=== PATIENT | female | born 1990 | race African-American/Black ===

== ENCOUNTER 2018-02-17 04:30 | Inpatient (IN) | payer MEDICAID ==
[~2018-02-17] VITALS: Ht 170.2 cm; Wt 72.6 kg
[2018-02-17] MEDS: BUTORPHANOL TARTRATE 2 MG/ML VIAL IV PRN ×2 (05:25→07:15)
[2018-02-17] MEDS ORDERED: PNV1TABL76 MT (05:30)
[2018-02-17] MEDS ORDERED: CARBOPROST TROMETHAMINE 250 MCG/ML AMPUL IM PRN (05:45)
[2018-02-17] MEDS ORDERED: LIDOCAINE HCL/PF 1% 10 MG/ML 5ML VIAL IJ SCH (05:45)
[2018-02-17] MEDS ORDERED: NALOXONE HCL 0.4 MG/ML 1ML VIAL IM PRN (05:45)
[2018-02-17] MEDS ORDERED: METHYLERGONOVINE MALEATE 0.2 MG/ML IM PRN ×2 (05:45→09:15)
[2018-02-17] MEDS: TERBUTALINE SULFATE 1MG/ML VIAL SUBCUT PRN ×2 (06:01→06:22)
[2018-02-17] MEDS ORDERED: LACTATED RINGERS 1,000 ML IV SCH (06:30)
[2018-02-17] MEDS ORDERED: PENICILLIN G POTASSIUM 5 MMU in DEXT 5% WATER 100 ML IV SCH (06:30)
[2018-02-17 06:40] LABS: BASOPHILS % 0.5 % (0.0-2.0); EOSINOPHILS % 0.1 % (0.0-5.0); HEMATOCRIT. 31.3 % (36.0-48.0); HEMOGLOBIN. 10.3 g/dL (12.0-16.0); LYMPHOCYTES % 20.9 % (20.0-50.0); MEAN CORPUSCULAR HEMOGLOBIN 26.5 pg (28.0-32.0); MEAN CORPUSCULAR VOLUME 80.5 fL (81.0-99.0); MEAN PLATELET VOLUME 9.9 fl (7.4-10.4); MONOCYTES % 5.8 % (2.0-8.0); NEUTROPHILS % 72.7 % (40.0-76.0); PLATELET 143 x1000/uL (130-400); RED BLOOD CELL COUNT 3.88 mill/uL (4.2-5.4); RED CELL DISTRIBUTION WIDTH 15.6 % (11.6-14.6)
[2018-02-17 06:48] LABS: INR 0.9; PARTIAL THROMBOPLASTIN TIME 27.7 sec (23.4-31.0); PROTHROMBIN TIME 9.4 sec (9.4-11.6)
[2018-02-17] MEDS: DEXT 5%/LR + PITOCIN 20UNITS/L 1,000 ML IV SCH ×2 (08:15→08:16)
[2018-02-17 09:00] VITALS: BP 145/85
[2018-02-17] MEDS ORDERED: DEXT 5%/LR + PITOCIN 20UNITS/L 1,000 ML IV SCH (09:01)
[2018-02-17] MEDS ORDERED: LANOLIN OINT 0.25 GM TUBE TOP PRN (09:15)
[2018-02-17] MEDS ORDERED: IBUPROFEN 400MG TABLET PO PRN (09:15)
[2018-02-17] MEDS ORDERED: RHO(D) IMMUNE GLOBULIN 300 MCG/SYR IM PRN (09:15)
[2018-02-17 09:30] VITALS: BP 149/85
[2018-02-17 09:36] LABS: CHLORIDE 109 mEq/L (98-107)
[2018-02-17] MEDS: IBUPROFEN 800MG TABLET PO PRN ×2 (09:49→17:14)
[2018-02-17] MEDS ORDERED: PENICILLIN G POTASSIUM 2.5 MMU in DEXTROSE 5% WATER 50 ML IV SCH (11:00)
[2018-02-17 11:42] LABS: KETONES URINE 1+ (NEGATIVE); LEUKOCYTE ESTERASE URINE NEGATIVE (NEGATIVE); NITRITE URINE NEGATIVE (NEGATIVE); OCCULT BLOOD URINE 3+ (NEGATIVE); PROTEIN URINE 3+ (NEGATIVE); SPECIFIC GRAVITY URINE 1.014 (1.005-1.030); UROBILINOGEN URINE 0.2 E.U./dL (0.2-1.0)
[2018-02-17 11:46] LABS: CLARITY URINE BLOODY (CLEAR); COLOR URINE RED (YELLOW)
[2018-02-17 11:59] LABS: HEPATITIS B SURFACE ANTIGEN NEGATIVE
[2018-02-17 12:28] LABS: RUBELLA IGG > 500.0 IU/mL (4.99-10)
[2018-02-17 12:40] LABS: *BARBITURATES SCREEN URINE NEGATIVE (NEGATIVE); *BENZODIAZEPINES SCREEN URINE NEGATIVE (NEGATIVE)
[2018-02-17 12:41] LABS: *COCAINE SCREEN URINE NEGATIVE (NEGATIVE); METHADONE URINE SCREEN NEGATIVE (NEGATIVE); OPIATES URINE SCREEN NEGATIVE (NEGATIVE); PHENCYCLIDINE URINE SCREEN NEGATIVE (NEGATIVE)
[2018-02-17 12:49] LABS: *AMPHETAMINES SCREEN URINE PRESUMTIVE POSITIVE (NEGATIVE); CANNABINOID URINE SCREEN PRESUMTIVE POSITIVE (NEGATIVE)
[2018-02-17 16:30] VITALS: BP 113/74
[2018-02-17 22:00] VITALS: BP 140/84
[2018-02-18 06:00] VITALS: BP 119/82
[2018-02-18 06:54] LABS: BASOPHILS % 0.2 % (0.0-2.0); EOSINOPHILS % 0.2 % (0.0-5.0); HEMOGLOBIN. 8.5 g/dL (12.0-16.0); LYMPHOCYTES % 22.1 % (20.0-50.0); MEAN CORPUSCULAR HEMOGLOBIN 26.7 pg (28.0-32.0); MEAN CORPUSCULAR VOLUME 81.7 fL (81.0-99.0); MEAN PLATELET VOLUME 10.1 fl (7.4-10.4); MONOCYTES % 5.5 % (2.0-8.0); PLATELET 124 x1000/uL (130-400); RED BLOOD CELL COUNT 3.19 mill/uL (4.2-5.4); RED CELL DISTRIBUTION WIDTH 15.4 % (11.6-14.6)
[2018-02-18 09:00] VITALS: BP 123/74
[2018-02-18] MEDS: IBUPROFEN 800MG TABLET PO PRN ×2 (10:02→23:17)
[2018-02-18] MEDS: PRENATAL VIT/FE FUMARATE/FA TABLET PO SCH (10:02)
[2018-02-18 17:00] VITALS: BP 113/70
[2018-02-18 20:15] VITALS: BP 132/80
[2018-02-19 07:33] VITALS: BP 119/81
[2018-02-19] MEDS: PRENATAL VIT/FE FUMARATE/FA TABLET PO SCH (08:07)
[2018-02-19] MEDS ORDERED: TETANUS, DIPHTHERIA, PERTUSSIS VAC/PF 0.5ML (>7YR OLD) IM ONE (09:00)
== END 2018-02-19 09:00 | disposition home or self-care (01) | DRG 560 ==
LOC: OBSVTOIN 04:30 → L&D 04:30 → 7EST PP/OB 09:41
PROVIDERS: ADMIT Obstetrics & Gynecology; ATTEND Obstetrics & Gynecology
PROC: 10E0XZZ Delivery of Products of Conception, External Approach (ICD-10-PCS; principal; 2018-02-17 07:38)
DX: O60.14X0 Preterm labor third trimester with preterm delivery third trimester, not applicable or unspecified (principal); D62 Acute posthemorrhagic anemia; O69.81X0 Labor and delivery complicated by cord around neck, without compression, not applicable or unspecified; O99.03 Anemia complicating the puerperium; Z3A.36 36 weeks gestation of pregnancy; Z37.0 Single live birth; Z79.899 Other long term (current) drug therapy; D64.9 Anemia, unspecified
CPT/HCPCS: 36415; 80053; 80305; 80307; 80349; 81003; 84550; 85025; 85610; 85730; 86592; 86703; 86762; 86850; 86900; 87086; 87340; 90715; 99281; G0378; J0595; J2310; J2540; J2590; J3105; J7060; J7120